=== PATIENT | male | born 1990 | race African-American/Black ===

== ENCOUNTER 2024-06-22 15:15 | Emergency (ER) | payer OTHER, BC ==
[2024-06-22 15:21] VITALS: BP 118/82; PULSE 66; RESP 16; TEMP 97.8; BMI 22.8
[2024-06-22] MEDS ORDERED: IBUPROFEN 600 MG TABLET (FP) PO ONE (17:35)
[2024-06-22] MEDS: IBUPROFEN 600 MG TABLET (FP) PO ONE (17:38)
== END 2024-06-22 19:24 | disposition home or self-care (01) ==
LOC: JERFT 15:15
PROC: 2W3CX1Z Immobilization of Right Lower Arm using Splint (ICD-10-PCS; principal; 2024-06-22)
DX: S62.634A Displaced fracture of distal phalanx of right ring finger, initial encounter for closed fracture (principal); S62.636A Displaced fracture of distal phalanx of right little finger, initial encounter for closed fracture; W22.8XXA Striking against or struck by other objects, initial encounter
CPT/HCPCS: 73130-TC-RT-FY; 99283-25